=== PATIENT | male | born 1995 | race Hispanic/Latino ===

== ENCOUNTER 2017-02-05 14:45 | Emergency (ER) | payer OTHER ==
[~2017-02-05] VITALS: Ht 182.9 cm; Wt 92.4 kg
[2017-02-05 14:46] VITALS: BP 138/74
[2017-02-05] MEDS ORDERED: ACET30TAB PO (15:26)
[2017-02-05] MEDS ORDERED: BACT800T5 PO (15:26)
== END 2017-02-05 15:39 | disposition home or self-care (01) ==
LOC: M ED 14:54
DX: L03.317 Cellulitis of buttock (principal)

== ENCOUNTER 2017-02-08 08:55 | Emergency (ER) | payer OTHER ==
[~2017-02-08] VITALS: Ht 188 cm; Wt 93.6 kg
[~2017-02-08 08:55] MED LIST: ACET30TAB PO; BACT800T5 PO
[2017-02-08] MEDS ORDERED: TYLE325T5 PO (09:04)
[2017-02-08] MEDS ORDERED: PERCOCET 5MG/325MG TAB PO ONE (10:15)
[2017-02-08 10:54] LABS: BASO % 0.2 % (0.0-1.0); EOS # 0.1 K/mm3 (0.0-0.50); EOS % 1.1 % (0.0-3.0); LARGE UNSTAINED CELL # 0.1 K/mm3 (0.0-0.4); LARGE UNSTAINED CELL % 0.6 % (0.0-4.0); LYMPH # 1.1 K/mm3 (1.5-6.5); LYMPH % 8.5 % (24.0-44.0); MEAN CORPUSCULAR HEMOGLOBIN 32.3 pg (27.0-33.0); MEAN CORPUSCULAR HGB CONC 35.7 g/dl (32.0-36.5); MEAN CORPUSCULAR VOLUME 90.5 fl (80.0-96.0); MONO # 0.5 K/mm3 (0.0-0.8); MONO % 3.9 % (0.0-5.0); NEUTROPHILS # 10.4 K/mm3 (1.8-7.7); NEUTROPHILS % 85.7 % (36.0-66.0); PLATELET COUNT, AUTOMATED 199 k/mm3 (150-450); RED CELL DISTRIBUTION WIDTH 12.3 % (11.5-14.5); WHITE BLOOD COUNT 12.1 K/mm3 (4.0-10.0)
--- NOTE | 2017-02-08 11:07 | REP ---
Gibbons sacrum ultrasonography for pilonidal cyst: Ultrasonography of the palpable lump in the sacral coccygeal area is performed. There is a subcutaneous mass measuring 4.9 x 2.2 centimeters in the subcutaneous soft tissues with heterogeneous echotexture . Findings are compatible with pilonidal abscess. However, differential diagnosis includes dermoid cyst and sacrococcygeal teratoma. MRI and surgical consultation might be considered. Signed by Diaz Marquez MD 02/08/2017 10:58 A
[2017-02-08 11:08] LABS: ANION GAP 7 MEQ/L (8-16); BLOOD UREA NITROGEN 14 MG/DL (7-18); CALCIUM LEVEL 8.7 MG/DL (8.5-10.1); CARBON DIOXIDE LEVEL 28 MEQ/L (21-32); CHLORIDE LEVEL 107 MEQ/L (98-107); CREATININE FOR GFR 1.17 MG/DL (0.70-1.30); GLOMERULAR FILTRATION RATE > 60.0 (>60); GLUCOSE, FASTING 102 MG/DL (70-105); POTASSIUM SERUM 4.8 MEQ/L (3.5-5.1); SODIUM LEVEL 142 MEQ/L (136-145)
[2017-02-08] MEDS ORDERED: LIDOCAINE 1% MDV 20ML VIAL SC ONE (11:15)
[2017-02-08] MEDS ORDERED: PERC5TAB6 PO (12:04)
[2017-02-08 12:16] VITALS: BP 150/71
--- NOTE | 2017-02-08 17:13 | ED PDOC ---
Post-Departure Follow-Up ft [facility] faxed formal report of pelvic us for fu Ildefonso Richardson MD Feb 08, 2017 17:13
== END 2017-02-08 12:17 | disposition home or self-care (01) ==
LOC: M ED 09:56
DX: L05.01 Pilonidal cyst with abscess (principal)

== ENCOUNTER 2022-11-10 23:27 | Observation (INO) | payer OTHER ==
[~2022-11-10] VITALS: Ht 182.9 cm; Wt 107.6 kg
[~2022-11-10 23:27] MED LIST changes: +ACET-716 PO; -ACET30TAB PO; +PERC5TAB12 PO; +TYLE325T5 PO
[2022-11-11] MEDS ORDERED: ACETAMINOPHEN 500 MG TAB PO ONE (07:25)
[2022-11-11] MEDS ORDERED: KETOROLAC 30 MG/ML 1ML VIAL IV ONE (07:25)
[2022-11-11] MEDS ORDERED: LIDOCAINE W/EPINEPHRINE 1% 20ML VIAL SC ONE (07:25)
[2022-11-11 07:50] LABS: BASO % 0.3 % (0.0-1.0); EOS # 0.2 10^3/uL (0.0-0.5); EOS % 1.6 % (0.0-3.0); HEMATOCRIT 45.1 % (42.0-52.0); HEMOGLOBIN 15.8 g/dl (13.5-17.5); LYMPH # 2.5 10^3/uL (1.5-5.0); LYMPH % 18.8 % (24.0-44.0); MEAN CORPUSCULAR HEMOGLOBIN 31.5 pg (27.0-33.0); MONO % 7.7 % (2.0-8.0); NEUTROPHILS # 9.4 10^3/uL (1.5-8.5); NEUTROPHILS % 71.3 % (36.0-66.0); PLATELET COUNT, AUTOMATED 199 10^3/uL (150-450); RED BLOOD COUNT 5.01 10^6/uL (4.30-6.10); WHITE BLOOD COUNT 13.2 10^3/uL (4.0-10.0)
[2022-11-11] MEDS ORDERED: NS IV ONE (08:15)
[2022-11-11] MEDS ORDERED: cefTRIAXone SOD 2 GM in D5W MINI-BAG PLUS 50 ML IV ONE (08:15)
[2022-11-11 08:22] LABS: BLOOD UREA NITROGEN 12 MG/DL (9-23); CALCIUM LEVEL 8.9 MG/DL (8.5-10.1); CARBON DIOXIDE LEVEL 28 MMOL/L (20-31); CHLORIDE LEVEL 102 MMOL/L (98-107); CREATININE FOR GFR 0.94 MG/DL (0.70-1.30); GLOMERULAR FILTRATION RATE > 60.0 (>60); GLUCOSE, FASTING 88 MG/DL (60-100); POTASSIUM SERUM 4.4 MMOL/L (3.5-5.1); SODIUM LEVEL 138 MMOL/L (136-145)
[2022-11-11 09:08] LABS: RSV AMPLIFICATION NEGATIVE (NEGATIVE)
[2022-11-11] MEDS ORDERED: ACETAMINOPHEN TAB 650MG DOSE (2X325MG) PO PRN (10:00)
[2022-11-11] MEDS ORDERED: PERCOCET 5MG/325MG TAB PO PRN (10:00)
[2022-11-11] MEDS ORDERED: ACET-907 PO (10:54)
[2022-11-11] MEDS ORDERED: HOME MED LIST COMPLETE! XX SCH (10:55)
[2022-11-11] MEDS: PIPERACILLIN/TAZOBACTAM SOD 3.375 GM in D5W MINI-BAG PLUS 50 ML IV SCH ×3 (10:56→23:08)
[2022-11-11 10:57] LABS: MEAN CORPUSCULAR HEMOGLOBIN 31.1 pg (27.0-33.0); MEAN CORPUSCULAR HGB CONC 34.5 g/dl (32.0-36.5); MEAN CORPUSCULAR VOLUME 90.1 fl (80.0-96.0); PLATELET COUNT, AUTOMATED 176 10^3/uL (150-450); RED BLOOD COUNT 4.44 10^6/uL (4.30-6.10); WHITE BLOOD COUNT 10.2 10^3/uL (4.0-10.0)
[2022-11-11 10:59] LABS: HEMOGLOBIN 13.8 g/dl (13.5-17.5)
[2022-11-11 11:00] LABS: INR 1.17; PROTHROMBIN TIME 15.1 SECONDS (12.5-14.5)
[2022-11-11 11:01] LABS: PARTIAL THROMBOPLASTIN TIME 29.7 SECONDS (24.8-34.2)
[2022-11-11 11:20] LABS: ALBUMIN 3.4 G/DL (3.2-5.2); ALKALINE PHOSPHATASE 67 U/L (46-116); ALT/SGPT 19 U/L (7.0-40); AST/SGOT 15 U/L (<34); BILIRUBIN,TOTAL 1.5 MG/DL (0.3-1.2); BLOOD UREA NITROGEN 15 MG/DL (9-23); CALCIUM LEVEL 8.2 MG/DL (8.5-10.1); CARBON DIOXIDE LEVEL 26 MMOL/L (20-31); CHLORIDE LEVEL 104 MMOL/L (98-107); CREATININE FOR GFR 0.88 MG/DL (0.70-1.30); GLOMERULAR FILTRATION RATE > 60.0 (>60); GLUCOSE, FASTING 85 MG/DL (60-100); SODIUM LEVEL 138 MMOL/L (136-145); TOTAL PROTEIN 6.1 G/DL (5.7-8.2)
[2022-11-11] MEDS: NS 1,000 ML IV SCH ×2 (13:29→23:08)
[2022-11-11 15:01] VITALS: BP 115/64
[2022-11-11 16:55] VITALS: BP 125/66
[2022-11-11 20:15] VITALS: BP 110/54
[2022-11-12] MEDS: PIPERACILLIN/TAZOBACTAM SOD 3.375 GM in D5W MINI-BAG PLUS 50 ML IV SCH (04:18)
[2022-11-12 05:26] VITALS: BP 98/54
[2022-11-12 10:08] LABS: HEMATOCRIT 41.8 % (42.0-52.0); HEMOGLOBIN 14.4 g/dl (13.5-17.5); MEAN CORPUSCULAR HEMOGLOBIN 31.5 pg (27.0-33.0); MEAN CORPUSCULAR HGB CONC 34.4 g/dl (32.0-36.5); MEAN CORPUSCULAR VOLUME 91.5 fl (80.0-96.0); PLATELET COUNT, AUTOMATED 198 10^3/uL (150-450); RED BLOOD COUNT 4.57 10^6/uL (4.30-6.10); WHITE BLOOD COUNT 7.7 10^3/uL (4.0-10.0)
[2022-11-12] MEDS ORDERED: LEVO1TAB39 PO (10:23)
[2022-11-12] MEDS ORDERED: PROB250C PO (10:23)
[2022-11-12] MEDS ORDERED: METR-265 PO (10:23)
[2022-11-12 10:49] LABS: ALBUMIN 3.3 G/DL (3.2-5.2); ALKALINE PHOSPHATASE 63 U/L (46-116); ALT/SGPT 20 U/L (7.0-40); AST/SGOT 14 U/L (<34); BILIRUBIN,TOTAL 0.7 MG/DL (0.3-1.2); BLOOD UREA NITROGEN 10 MG/DL (9-23); CALCIUM LEVEL 8.3 MG/DL (8.5-10.1); CARBON DIOXIDE LEVEL 29 MMOL/L (20-31); CHLORIDE LEVEL 108 MMOL/L (98-107); CREATININE FOR GFR 0.92 MG/DL (0.70-1.30); GLOMERULAR FILTRATION RATE > 60.0 (>60); GLUCOSE, FASTING 89 MG/DL (60-100); POTASSIUM SERUM 4.8 MMOL/L (3.5-5.1); SODIUM LEVEL 141 MMOL/L (136-145); TOTAL PROTEIN 6.1 G/DL (5.7-8.2)
== END 2022-11-12 11:18 | disposition home or self-care (01) ==
LOC: M ED 23:27 → M ED INP 23:28 → ENRESERV 11-11 16:12 → M MSPAV 11-11 16:48
PROVIDERS: ADMIT Internal Medicine; ATTEND Internal Medicine
DX: L05.01 Pilonidal cyst with abscess (principal); A41.1 Sepsis due to other specified staphylococcus; M54.9 Dorsalgia, unspecified; Z72.0 Tobacco use; Z79.2 Long term (current) use of antibiotics; Z79.899 Other long term (current) drug therapy
CPT/HCPCS: 10080; 36415; 80048; 80053; 83605; 85025; 85027; 85610; 85730; 87040; 87070; 87077; 87186; 87205; 87631; 87641; 96365; 96366; 96367; 96375; 96376; 99284; J0696; J1885; J2543